=== PATIENT | male | born 1940 | race Caucasian/White ===

== ENCOUNTER → 2017-10-15 | Outpatient (CLI) | payer MEDICARE | END | disposition home or self-care (01) | LOC: ECHO 09:47 | DX: I25.10 Atherosclerotic heart disease of native coronary artery without angina pectoris (principal); I08.3 Combined rheumatic disorders of mitral, aortic and tricuspid valves; I27.20 Pulmonary hypertension, unspecified; I11.0 Hypertensive heart disease with heart failure; I50.9 Heart failure, unspecified; E03.9 Hypothyroidism, unspecified; K21.9 Gastro-esophageal reflux disease without esophagitis | CPT/HCPCS: 93306 ==

== ENCOUNTER → 2018-10-28 | Outpatient (CLI) | payer MEDICARE ==
[2015-09-08 11:05] VITALS: BP 131/74
[~2018-10-28] MED LIST: ALLO300T PO; AMIO200T4 PO; AMOX1TAB61 PO; ASPI-630 PO; ASPI325T11 PO; ASPI325T8 PO; CRESTOR20 MG PO; DIGO125T PO; DIPH25CA58 PO; FURO-68 PO; FURO40TA4 PO; LEVO100T PO; LEVO100V5 IV; LEVO500T8 PO; LEVO75TA5 PO; METO-239 PO; METO25TA4 PO; POTA20PA21 PO; POTA20TA12 PO; WARF2TAB PO; WARF3TAB50 PO
--- NOTE | 2018-10-28 14:47 | CARD ---
MR#: [id number] Date of Study: 10/28/2018 Ordering Physician: PIERCE LOPEZ, Referring Physician: PIERCE LOPEZ, Tech: Marleny Pablo APPROVED REPORT EXAM: Two-dimensional and M-mode echocardiogram with Doppler and color Doppler. Other Information Quality : AverageHR: 51bpm INDICATION Cardiac Disease: CAD RISK FACTORS Hypertension 2D DIMENSIONS Left Atrium(2D)4.2 (1.6-4.0cm)IVSd1.2 (0.7-1.1cm) Aortic Root(2D)3.3 (2.0-3.7cm)LVDd4.1 (3.9-5.9cm) LVOT Diameter2.1 (1.8-2.4cm)PWd1.3 (0.7-1.1cm) LVDs3.6 (2.5-4.0cm)FS (%) 11.1 % SV17.9 ml Aortic Valve AoV Peak Jose Angel.108.3cm/sAoV VTI20.5cm AO Peak GR.4.7mmHgLVOT Peak Jose Angel.76.6cm/s LVOT VTI 18.57cmAO Mean GR.3mmHg LISA (VMAX)1.44eo0OIO (VTI)3.11cm2 Mitral Valve MV E Npsbcugo491.2cm/sMV DECEL LBXB491bk MV A Mutoyqvg47.4cm/sMV HZX97mb E/A Ratio3.5MVA (PHT)5.72cm2 TDI E/Lateral E'9.0E/Medial E'12.4 Pulmonary Valve PV Peak Eekdjkpt838.6cm/sPV Peak Grad.4mmHg Tricuspid Valve TR P. Wxzuqqij644wh/sRAP GTJZRDXZ78zmEm TR Peak Gr.85soGoPAJN78ztLq Pulmonary Vein S1 Rligtzgk89.0cm/sD2 Gbbdjfqv12.7cm/s LEFT VENTRICLE The left ventricle is normal size. There is mild concentric left ventricular hypertrophy. The left ve ntricular systolic function is normal and the ejection fraction is within normal range. The Ejection Fraction is 55-60%. There is normal LV segmental wall motion. The left ventricular diastolic function and filling is normal for age. RIGHT VENTRICLE The right ventricle is borderline dilated. There is normal right ventricular wall thickness. The righ t ventricular systolic function is normal. ATRIA The left atrium is mildly dilated. The right atrium is mildly dilated. The interatrial septum is inta ct with no evidence for an atrial septal defect or patent foramen ovale as noted on 2-D or Doppler im aging. AORTIC VALVE The aortic valve is not well visualized. The aortic valve is mildly thickened. Doppler and Color Flow revealed trace aortic regurgitation. There is no significant aortic valvular stenosis. MITRAL VALVE The mitral valve is normal in structure and function. There is no evidence of mitral valve prolapse. There is no mitral valve stenosis. Doppler and Color-flow revealed trace mitral regurgitation. TRICUSPID VALVE The tricuspid valve is normal in structure and function. Doppler and Color Flow revealed mild tricusp id regurgitation with an estimated PAP of 41 mmHg. There is no tricuspid valve stenosis. PULMONIC VALVE The pulmonic valve is not well visualized. Doppler and Color Flow revealed no pulmonic valvular regur gitation. GREAT VESSELS The aortic root is normal in size. The IVC is dilated and collapses >50% with inspiration. PERICARDIAL EFFUSION There is no evidence of significant pericardial effusion. Critical Notification Critical Value: No <Conclusion> The left ventricle is normal size. The left ventricular systolic function is normal and the ejection fraction is within normal range. The Ejection Fraction is 55-60%. There is mild concentric left ventricular hypertrophy. There is no significant aortic valvular stenosis. Doppler and Color Flow revealed trace aortic regurgitation. Doppler and Color-flow revealed trace mitral regurgitation. Doppler and Color Flow revealed mild tricuspid regurgitation with an estimated PAP of 41 mmHg. Signed by : Mitchel Varner MD Electronically Approved : 10/28/2018 14:46:28
--- NOTE | 2018-10-29 07:46 | RAD ---
MR#: [id number] Date of Study: 10/28/2018 Ordering Physician: PIERCE LOPEZ, Referring Physician: PIERCE LOPEZ, Tech: Veronica Huff RVT, SOLE APPROVED REPORT Patient Location: OUT-PATIENT Laterality:Bilateral Risk Factors Hypertension: CAD, Doppler Spectral Velocity Analysis Right Left pCCA 57/14 cm/spCCA 84/24 cm/s mCCA 67/16 cm/smCCA 73/11 cm/s dCCA 58/12 cm/sdCCA 64/13 cm/s ECA 78/10 cm/sECA 62/9 cm/s pICA 110/18 cm/spICA 79/21 cm/s Ben 202/48 cm/smICA 96/36 cm/s dICA 173/51 cm/sdICA 79/27 cm/s Vert. 32/ cm/sVert. 37/ cm/s ICA/CCA 3.01ICA/CCA 1.14 Findings Grayscale images of the right common carotid, carotid bifurcation and internal carotid vessels reveal s moderate calcific plaque mostly localized to the bulb. Based on spectral waveforms and velocities t here is a 50-69% stenosis involving the right mid internal carotid artery. No significant stenosis is identified in the left internal carotid artery. Bilateral vertebral velocities are diminished but antegrade and fashion. Critical Notification Critical Value: No <Conclusion> 1. Moderate right internal carotid artery disease. Signed by : Shaun Cueva, Electronically Approved : 10/29/2018 07:46:06
== END | disposition home or self-care (01) ==
LOC: ECHO 09:56
PROVIDERS: ATTEND Internal Medicine Cardiovascular Disease
DX: I07.1 Rheumatic tricuspid insufficiency (principal); I65.21 Occlusion and stenosis of right carotid artery; I11.9 Hypertensive heart disease without heart failure; I25.10 Atherosclerotic heart disease of native coronary artery without angina pectoris
CPT/HCPCS: 93306; 93880

== ENCOUNTER → 2019-04-30 | Outpatient (CLI) | payer MEDICARE ==
[2015-09-08 11:05] VITALS: BP 131/74
[~2019-04-30] MED LIST changes: +REGADENOSON 0.4 MG/5 ML DISP.SYRIN. IV ONE
--- NOTE | 2019-04-30 13:01 | RAD ---
MR#: [id number] Date of Study: 04/30/2019 Ordering Physician: PIERCE LOPEZ, Referring Physician: MOHSEN OLIVER Tech: IRENE Silveira APPROVED REPORT Test Type: Pharmacological Stress Nurse/Tech: Meng VILLALTA Test Indications: CAD Cardiac History: CABG x4 6yrs ago, HTN, A-flutter, See EMR Medications: Warfarin 4.5mg QD, ASA 81mg QD, See EMR Medical History: Cancer w/ chemo, See EMR Resting ECG: A-flutter controlled w/ BBB Resting Heart Rate: 62 bpm Resting Blood Pressure: 138/74mmHg Pretest Chest Pain: No chest pain Nurse/Tech Notes Lungs CTA, heart tones regular. Consent: The procedure was explained to the patient in lay terms. Informed consent was witnessed. Luís eout was entered into [employer]. History and Stress Test performed by RT Bart (R) (N) Pharm. Details Pharmacologic stress testing was performed using 0.4mg per 5ml of regadenoson given intravenously ove r 7-10 seconds. Stress Symptoms No chest pain or symptoms. POST EXERCISE Reason for Termination: Infusion complete Max HR: 68 bpm Max Blood Pressure: 139/65mmHg Blood Pressure response to exercise: Normal blood pressure response during stress. Heart Rate response to exercise: WNL Chest Pain: No. Arrhythmia: No. ST Change: No. INTERPRETATION Stress EKG Conclusion: Baseline EKG showed atrial fib/flutter. No ischemic changes at peak stress. No other arrhythmias. Imaging Protocol IMAGE PROTOCOL: Rest Tc-99m/stress Tc-99m 1 day Rest: Stress: Viability: Radiopharm.Tc99m FupenpqqaMn25j Sestamibi Dose10.3mCi 33mCi Duration 15min. 10min. Img Date 04/30/2019 04/30/2019 Inj-Img Zula05nln. 60min. Rest Admin Site:IV - Right AntecubitalAdministrator:RT Coleman (R)(N) Stress Admin Site: IV - Right AntecubitalAdministrator: RT Bart (R)(N) STRESS DATA End Diast. Vol.101.0mlAv. Heart Rate61.0bpm End Syst. Vol.40.0mlCO Index BSA0.0L/min Myocardial Hcbg000.0gEject. Mbwrcqfn50.0% Stress Rates Pk. Fill Rate3.10EDV/secLVtime Pk. Fill 230.23msec Pk. Empty Rate3.32ESV/secLVtime Pk. Ilxig699.19msec /3 Pk. Fill0.67EDV/sec Stress Scores Regional WT0.00Summed WT2.00 Regional WM0.00Summed WM15.00 Study quality was good. Left Ventricular size was Normal at Rest and Stress. Lung uptake was . Left Ventricular ejection fraction is 60%. The rest and stress images show normal perfusion, normal contraction and thickening. LV Perf. Quant 17 Seg. SSS2.00 17 Seg. SRS1.00 17 Seg. SDS2.00 Stress Defect Extent (% LAD)11.90Rest Defect Extent (% LAD)8.80Rev. Defect Extent (% LAD)11.30 Stress Defect Extent (% LCX) 0.00Rest Defect Extent (% LCX)0.00Rev. Defect Extent (% LCX)0.00 Stress Defect Extent (% RCA)0.00Rest Defect Extent (% RCA)0.00Rev. Defect Extent (% RCA)0.00 Stress Defect Extent (% AMERICA)4.10Rest Defect Extent (% AMERICA)3.50Rev. Defect Extent (% AMERICA)3.90 Conclusion 1. Regadenoson cardioisotope stress test did not show any evidence of ischemia or infarct. 2. Normal left ventricular systolic function with ejection fraction calculated at 60%. 3. Low risk for cardiac events. Signed by : Pierce Lopez, Electronically Approved : 04/30/2019 13:01:20
== END | disposition home or self-care (01) ==
LOC: NM 08:54
PROVIDERS: ATTEND Internal Medicine Cardiovascular Disease
DX: I48.91 Unspecified atrial fibrillation (principal); I45.4 Nonspecific intraventricular block; I25.10 Atherosclerotic heart disease of native coronary artery without angina pectoris; I10 Essential (primary) hypertension; Z95.1 Presence of aortocoronary bypass graft
CPT/HCPCS: 78452; 93017; A9500; J2785

== ENCOUNTER → 2019-10-27 | Outpatient (CLI) | payer MEDICARE ==
[2015-09-08 11:05] VITALS: BP 131/74
[~2019-10-27] MED LIST changes: -DIGO125T PO; +DIGO125T3 PO; +LEVO-101 PO; -LEVO100T PO; -REGADENOSON 0.4 MG/5 ML DISP.SYRIN. IV ONE
--- NOTE | 2019-10-27 10:42 | CARD ---
MR#: [id number] Date of Study: 10/27/2019 Ordering Physician: PIERCE LOPEZ, Referring Physician: PIERCE LOPEZ Tech: Ewa Issa RDCS APPROVED REPORT EXAM: Two-dimensional and M-mode echocardiogram with Doppler and color Doppler. Other Information Quality : Fair Rhythm : Atrial Fibrillation INDICATION Cardiac Disease: CAD Surgery/Intervention CABG: Date: 2012 2D DIMENSIONS RVDd2.8 (2.9-3.5cm)Left Atrium(2D)4.7 (1.6-4.0cm) IVSd0.9 (0.7-1.1cm)Aortic Root(2D)3.1 (2.0-3.7cm) LVDd4.2 (3.9-5.9cm)LVOT Diameter2.1 (1.8-2.4cm) PWd0.9 (0.7-1.1cm)LVDs3.5 (2.5-4.0cm) FS (%) 16.8 %SV27.9 ml LVEF(%)35.5 (>50%) Aortic Valve AoV Peak Jose Angel.94.0cm/sAoV VTI17.1cm AO Peak GR.3.5mmHgLVOT Peak Jose Angel.88.5cm/s AO Mean GR.2mmHgAVA (VMAX)3.26cm2 LISA (VTI)4.40bz9CR P 1/2 Vuwk7452qq Mitral Valve MV E Bwrequmn93.5cm/sMV DECEL KNNZ234jc MV A Btsvqsnh50.5cm/sE/A Ratio2.9 Tricuspid Valve TR P. Swwffpeq227ys/sRAP QAXKOHYE12xtBz TR Peak Gr.27nlKsITBM74mwGk LEFT VENTRICLE The left ventricle is normal size. There is normal left ventricular wall thickness. Left ventricle sy stolic function is normal. The Ejection Fraction is 55-60%. There is normal LV segmental wall motion. RIGHT VENTRICLE The right ventricle is normal size. The right ventricular systolic function is normal. ATRIA The left atrium is mildly dilated. The right atrium is mildly dilated. The interatrial septum is inta ct with no evidence for an atrial septal defect or patent foramen ovale as noted on 2-D or Doppler im aging. AORTIC VALVE The aortic valve is calcified but opens well. Doppler and Color Flow revealed trace aortic regurgitat ion. There is no significant aortic valvular stenosis. MITRAL VALVE The mitral valve is calcified but opens well. There is no evidence of mitral valve prolapse. There is no mitral valve stenosis. Doppler and Color-flow revealed trace mitral regurgitation. TRICUSPID VALVE The tricuspid valve is normal in structure and function. Doppler and Color Flow revealed trace tricus pid regurgitation. There is moderate pulmonary hypertension. The PA pressure was estimated at 47 mmHg . There is no tricuspid valve stenosis. PULMONIC VALVE The pulmonic valve is not well visualized. Doppler and Color Flow revealed mild pulmonic valvular reg urgitation. There is no pulmonic valvular stenosis. GREAT VESSELS The aortic root is normal in size. The ascending aorta is not well seen. The IVC is dilated and colla pses <50% with inspiration. PERICARDIAL EFFUSION There is no evidence of significant pericardial effusion. Critical Notification Critical Value: No <Conclusion> Left ventricle systolic function is normal. The Ejection Fraction is 55-60%. There is normal LV segmental wall motion. Trace aortic regurgitation. Trace mitral regurgitation. Trace tricuspid regurgitation. The PA pressure was estimated at 47 mmHg. There is no evidence of significant pericardial effusion. Signed by : Pierce Lopez, Electronically Approved : 10/27/2019 10:42:05
--- NOTE | 2019-10-28 07:22 | RAD ---
MR#: [id number] Date of Study: 10/27/2019 Ordering Physician: PIERCE LOPEZ, Referring Physician: PIERCE LOPEZ, Tech: Marleny Christiansen, SOLE, RVT, RTR APPROVED REPORT Patient Location: OUT-PATIENT Laterality:Bilateral Indications Carotid Artery Stenosis Doppler Spectral Velocity Analysis Right Left pCCA 74/13 cm/spCCA 116/27 cm/s mCCA 68/13 cm/smCCA 97/26 cm/s dCCA 72/16 cm/sdCCA 81/20 cm/s Bulb 114/25 cm/sBulb 93/15 cm/s ECA 87/17 cm/sECA 90/14 cm/s pICA 218/61 cm/spICA 57/17 cm/s Ben 222/74 cm/smICA 72/27 cm/s dICA 85/26 cm/sdICA 98/34 cm/s Vert. 47/11 cm/sVert. 39/15 cm/s ICA/CCA 3.00ICA/CCA 0.84 Findings Grayscale images of the right internal carotid, external carotid and common carotid vessels demonstra nabil severe heavy calcific plaque burden at the level of the carotid bulb extending into the internal carotid artery. Spectral waveforms and color Doppler imaging are consistent with moderate stenosis, although a greater than 70% stenosis cannot be excluded given the heavy calcific plaque. The right v ertebral velocities are antegrade. ICA to CCA ratios are elevated at 3.2. Grayscale images of the left internal carotid, external carotid and common carotid vessels demonstrat e mild diffuse intimal hyperplasia and plaque. Overall spectral waveforms and color Doppler are sugg estive of 0 to less than 50% stenosis without any critical focal stenosis identified. Antegrade vert ebral velocities are noted. Normal ICA to CCA ratios. Critical Notification Critical Value: No <Conclusion> 1. At least moderate right internal carotid artery stenosis by velocity criteria, cannot rule out mo re than 70% stenosis as images appear slightly worsened on grayscale and with velocities compared to last year, consider CT angiography for further evaluation. Signed by : Shaun Cueva, Electronically Approved : 10/28/2019 07:21:49
== END | disposition home or self-care (01) ==
LOC: CARD 09:39
PROVIDERS: ATTEND Internal Medicine Cardiovascular Disease
DX: I65.23 Occlusion and stenosis of bilateral carotid arteries (principal); I08.8 Other rheumatic multiple valve diseases; I27.20 Pulmonary hypertension, unspecified; I25.10 Atherosclerotic heart disease of native coronary artery without angina pectoris
CPT/HCPCS: 93306; 93880